=== PATIENT | male | born 1970 | race Caucasian/White ===

== ENCOUNTER 2018-10-04 19:39 | Inpatient (IN) | payer OTHER ==
[~2018-10-04] VITALS: Ht 182.9 cm; Wt 117.0 kg
[2018-10-04] MEDS ORDERED: LISINOPRIL10 MG PO (19:47)
[2018-10-04] MEDS ORDERED: METFORMIN HCL500 MG PO (19:47)
--- NOTE | 2018-10-04 20:00 | NUR ---
PT SEEN BY HEAD BUCKER AFTER PRESTING TO ER FOR CRUSH INJURY TO RIGHT FOOT. SMALLEST TOE ON RIGHT FOOT, 5TH DIGIT SEVERED FROM FOOT HANGING BY TISSUE. WOUND CLEANED WITH SALINE AND WRAPPED WITH CURLEX.
--- NOTE | 2018-10-04 20:09 | NUR ---
PT PRESENTS TO ED WITH CRUSHING INJURY TO RIGHT FOOT SUSTAINED BY FORKLIFT ACCIDENT.
[2018-10-04 20:25] LABS: ABSOLUTE BASOPHILS 0.1 thou/uL (0.0-0.2); ABSOLUTE EOSINOPHILS 0.1 thou/uL (0.0-0.7); ABSOLUTE LYMPHOCYTES 3.2 thou/uL (0.8-5.3); ABSOLUTE MONOCYTES 0.8 thou/uL (0.0-1.2); ABSOLUTE NEUTROPHILS 5.2 thou/uL (1.6-8.1); BASOPHILS 0.8 %; EOSINOPHILS 1.5 %; HEMATOCRIT 44.8 % (42.0-52.0); HEMOGLOBIN 15.3 gm/dL (14.0-18.0); LYMPHOCYTES 33.8 %; MCH 30.9 pg (26.0-34.0); MCHC 34.1 g/dL (28.0-37.0); MCV 90.5 fL (80.0-100.0); MONOCYTES 8.1 %; MPV 6.7 fl. (7.2-11.1); NUCLEATED RBCS 0 /100WBC; PLATELET COUNT* 311 thou/uL (150-400); POLYS 55.8 %; RBC 4.95 mil/uL (4.50-6.00); RDW-CV 13.2 % (10.5-14.5); WBC 9.4 thou/uL (4.0-11.0)
[2018-10-04 20:33] LABS: CALCIUM 9.1 mg/dL (8.5-10.1); CREATININE 0.9 mg/dL (0.6-1.3); POTASSIUM 3.5 mmol/L (3.5-5.1)
[2018-10-04 20:37] LABS: ALBUMIN 3.8 g/dL (3.4-5.0); TOTAL BILIRUBIN 0.3 mg/dL (<0.1-1.0); TOTAL PROTEIN 7.2 g/dL (6.4-8.2)
[2018-10-04 22:43] VITALS: BP 108/61
--- NOTE | 2018-10-04 22:43 | NUR ---
REPORT GIVEN TO JOSHUA DELGADILLO. PT BEING ADMITTED TO ORTHO UNIT.
[2018-10-04 23:00] VITALS: BP 145/89
[2018-10-05] VITALS (8 sets, daily range): BP systolic 119–143; BP diastolic 59–83
--- NOTE | 2018-10-05 07:33 | NUR ---
Admission to floor at 2300. He amputated his toe with a forklift. He has a kerlex dressing to the right foot. This am the ortho resident was in to see him and we removed the dressing and pictures were taken. He's had pain meds x 3 this shift. He's had nothing by mouth since midnight.He has slept alittle.
--- NOTE | 2018-10-05 14:26 | NUR ---
SW attempted to meet with pt this morning and pt was off of unit possibly in surgery. SW to remain available to assist with safe dc planning if needs arise.
--- NOTE | 2018-10-05 16:59 | EKG ---
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
--- NOTE | 2018-10-05 17:33 | NUR ---
PATIENT ALERT AND ORIENTED X 4. VITAL SIGNS STABLE ON ROOM AIR. UP WITH ASSISTANCE. WEIGHT BEARING THROUGH HEEL ON RIGHT FOOT, WITH SURGICAL SHOE. IV PATENT WITH FLUIDS INFUSING. DENIES NAUSEA AT THIS TIME. PAIN BEING MANAGED WITH IV AND PO MEDICATION. FALL PRECAUTIONS IN PLACE AND BED ALARM ON. HOURLY ROUNDS MAINTAINED THROUGHOUT THE SHIFT. CALL LIGHT WITHIN REACH. NURSING WILL CONTINUE TO MONITOR.
[2018-10-06] VITALS (7 sets, daily range): BP systolic 115–127; BP diastolic 63–83
[2018-10-06 03:58] LABS: ABSOLUTE LYMPHOCYTES 1.4 thou/uL (0.8-5.3); ABSOLUTE MONOCYTES 0.6 thou/uL (0.0-1.2); ABSOLUTE NEUTROPHILS 11.3 thou/uL (1.6-8.1); BASOPHILS 0.2 %; EOSINOPHILS 0.1 %; HEMATOCRIT 44.8 % (42.0-52.0); HEMOGLOBIN 14.8 gm/dL (14.0-18.0); LYMPHOCYTES 10.5 %; MCH 30.4 pg (26.0-34.0); MCV 92.1 fL (80.0-100.0); MONOCYTES 4.4 %; MPV 7.2 fl. (7.2-11.1); NUCLEATED RBCS 0 /100WBC; PLATELET COUNT* 295 thou/uL (150-400); POLYS 84.8 %; RBC 4.87 mil/uL (4.50-6.00); RDW-CV 12.8 % (10.5-14.5); WBC 13.3 thou/uL (4.0-11.0)
[2018-10-06 04:24] LABS: CALCIUM 8.5 mg/dL (8.5-10.1); CREATININE 0.6 mg/dL (0.6-1.3); POTASSIUM 4.2 mmol/L (3.5-5.1)
--- NOTE | 2018-10-06 04:52 | NUR ---
PT ALERT AND ORIENTED. VSS ON RA. ASSESSMENT DOCUMENTED. DRESSING TO RT FEET C/D/I. PAIN MEDS GIVENS THIS SHIFT. RELIEFS NOTED. PT REFUSES CAPNO MONITORING. EDUCATION PROVIDED. PT SATTING IN THE HIGH 90'S AT RA. SLEEPING MED GIVEN PER PT'S REQUEST. CALL LIGHT WITHIN REACH. HOURLY ROUNDINGS MADE. POSSIBLE DC TO HOME TODAY. WILL CONTINUE TO MONITOR.
[2018-10-06] MEDS ORDERED: NORCO 5-325 TA1 EAC1 PO (08:49)
[2018-10-06] MEDS ORDERED: OXYCODONE HCL 55 MG PO (08:49)
--- NOTE | 2018-10-06 08:53 | OP ---
[facility] [address] [place] [address] OPERATIVE REPORT Name: GUERREROPEDRO Wiseman Room: [address] IN .R.#: [id number] Admission: 10/04/18 Attend Phys: Phyllis Polanco Discharge: Date of : 72 Report #: [id number] THIS REPORT FOR: //name// CC: Lisa Choi DICTATED BY: Denzel Ramon DO DATE OF SERVICE: 10/05/2018 PREOPERATIVE DIAGNOSIS: Right fifth toe traumatic partial amputation. POSTOPERATIVE DIAGNOSIS: Right fifth toe traumatic partial amputation. OPERATION PERFORMED: Revision amputation of right fifth toe. SURGEON: Dr. Demetrius June. CHARGE MASTER SPECIALIST: Denzel Ramon DO and Tyree Armstrong DO. ESTIMATED BLOOD LOSS: 15 mL. ANTIBIOTICS: Ancef 2 grams. ANESTHESIA: General. DRAINS: None. SPECIMENS: None. COMPLICATIONS: None. CONDITION: Stable. DISPOSITION: PACU to Med/Surg floor." OPERATIVE INDICATIONS: The patient is a pleasant 47-year-old male who presented to the [facility] on 10/04/2018 after sustaining an injury earlier that day to his right foot, small toe. 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 He had immediate pain and bleeding and came to the Emergency Department and was noted to have partial amputation at the level of the middle phalanx of the small toe. He was updated on his tetanus and given a dose of IV antibiotics. We discussed with him the findings as there is very little soft tissue attachment left to the distal aspect of the toe and it was very unlikely that this would heal. Therefore, we did discuss a revision [place] [address] OPERATIVE REPORT Name: PEDRO MASTERS V Room: [address] IN [facility]#: [id number] Admission: 10/04/18 Attend Phys: Phyllis Polanco Discharge: Date of : 72 Report #: [id number] indications, and treatment alternatives were reviewed. He was in agreement with our treatment plan and his informed consent was signed. DESCRIPTION OF PROCEDURE: The patient was identified in the preoperative holding area. Questions were answered. His right foot was marked as the operative side as confirmed by the patient. He was transferred to the operating suite and placed on the operating table in supine position where general anesthesia was then induced. A well-padded pneumatic tourniquet was placed on the right proximal thigh; however, this was not inflated during the procedure. The right lower extremity was then sterilely prepped and draped with Betadine. A time-out was then performed to confirm that our safety checklist had been completed and all the OR personnel was in agreement. Upon intraoperative examination of the right small toe, it was completely stripped of almost all soft tissue attachments except for the skin, which was attached posteriorly. The distal aspect of the toe was beginning to turn dusky. Therefore, we did proceed with the completion of the amputation. A 15 blade scalpel was used to complete the amputation of the skin and the remaining soft tissue attachments. The Addy elevator was used to identify the metatarsophalangeal joints and the proximal phalanx was sharply excised. The soft tissues were then thoroughly irrigated. The digital nerve was transected and cauterized. This was also buried in soft tissue. The skin edges were then reapproximated free of tension utilizing 3-0 nylon sutures in a simple interrupted fashion. Skin did close nicely. There was no significant gapping and there was not much tension on the incision at all. A sterile bandage was then applied with Xeroform, 4 x 4s, ABD, Kerlix and an Cory bandage. The patient was awakened from general anesthetic. Sponge and needle counts were correct x 2. He was transferred to the PACU in stable condition. Dr. June was present for the entirety of the procedure including all the vital portions. <ELECTRONICALLY SIGNED> By: Richard Silvestre DO 10/06/18 0853 [id number] June DO /nt
[2018-10-06] MEDS ORDERED: NICOTINE TRANSD21 M1 TRANSDERM (09:43)
[2018-10-06] MEDS ORDERED: DOK PLUS TABLE1 EACH PO (09:43)
--- NOTE | 2018-10-06 12:03 | NUR ---
Pt to dc home today. Pt in need of rolling walker. SW met with pt to discuss rolling walker need and pt said he actually has insurance and provided CM with info, ALBERTO called Jessica with [employer] who found information in [employer] under "Negro" Nilsa Kimble and approved walker to be issued. Pt has this insurance through January and shared that it is through pt who pt and pt are going through a divorce. Pt Haley Kimble [employer] GRP: [phone], [employer] Manager [phone]. ID [id number]. 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 No other dc needs expressed.
--- NOTE | 2018-10-06 12:26 | NUR ---
PT GIVEN DISCHARGE INFORMATION, CARE NOTES, AND PRESCRIPTIONS. IV REMOVED. WALKER GIVEN. ORTHO SHOE IN PLACE. WEIGHT BEARING RESTRICTIONS IN PLACE. FALL RISK PRECAUTIONS IN PLACE. HOURLY ROUNDING COMPLETED. PT LEFT VIA WHEELCHAIR TO HOME.
--- NOTE | 2018-10-06 15:39 | NUR ---
PT ORDERS RECEIVED. PT DISCHARGED FROM HOSPITAL PRIOR TO COMPLETION OF PT EVAL AND INTERVENTIONS.
[2018-10-07 02:10] LABS: HBsAG-EMPLOYEE EXPOSURE Negative (Negative)
[2018-10-07 06:10] LABS: GLYCOHEMOGLOBIN (HGB A1C) 7.9 % (4.8-5.6)
== END 2018-10-06 12:27 | disposition home or self-care (01) | DRG 909 ==
LOC: M.ERS 19:39 → M.TBA-ER 20:43 → M.ORTHSURG 20:43
PROVIDERS: Family Medicine; Nurse Practitioner Psychiatric/Mental Health; ADMIT Internal Medicine
PROC: 0Y6X0Z2 Detachment at Right 5th Toe, Mid, Open Approach (ICD-10-PCS; principal; 2018-10-05)
DX: S98.131A Complete traumatic amputation of one right lesser toe, initial encounter (principal); I10 Essential (primary) hypertension; E11.9 Type 2 diabetes mellitus without complications; Z88.0 Allergy status to penicillin; F17.210 Nicotine dependence, cigarettes, uncomplicated; E66.01 Morbid (severe) obesity due to excess calories; Z68.35 Body mass index [BMI] 35.0-35.9, adult; Z23 Encounter for immunization; X58.XXXA Exposure to other specified factors, initial encounter; Y93.89 Activity, other specified; Y92.89 Other specified places as the place of occurrence of the external cause; Y99.8 Other external cause status

== ENCOUNTER 2020-09-26 23:11 | Emergency (ER) | payer OTHER ==
[~2020-09-26] VITALS: Ht 182.9 cm; Wt 102.1 kg
[~2020-09-26 23:11] MED LIST: DOK PLUS TABLE1 EACH PO; LISINOPRIL10 MG PO; METFORMIN HCL500 MG PO; NICOTINE TRANSD21 M1 TRANSDERM; NORCO 5-325 TA1 EAC1 PO; OXYCODONE HCL 55 MG PO
[2020-09-26 23:25] VITALS: BP 132/84
[2020-09-26] MEDS ORDERED: PERCOCET 7.5-31 EAC1 PO (23:53)
== END 2020-09-27 00:14 | disposition home or self-care (01) ==
LOC: M.ERS 23:11
DX: M25.461 Effusion, right knee (principal); M25.561 Pain in right knee; I10 Essential (primary) hypertension; E11.9 Type 2 diabetes mellitus without complications; Z88.0 Allergy status to penicillin

== ENCOUNTER 2021-03-04 16:53 | Emergency (ER) | payer OTHER ==
[~2021-03-04] VITALS: Ht 182.9 cm; Wt 129.3 kg
[~2021-03-04 16:53] MED LIST changes: +PERCOCET 7.5-31 EAC1 PO
[2021-03-04] MEDS ORDERED: HYDROCODON-ACE1 EAC7 PO (18:49)
[2021-03-04] MEDS ORDERED: CEPHALEXIN500 MG PO (18:59)
[2021-03-04 19:22] VITALS: BP 141/70
== END 2021-03-04 19:22 | disposition home or self-care (01) ==
LOC: M.ERS 16:53
DX: S61.411A Laceration without foreign body of right hand, initial encounter (principal); S80.01XA Contusion of right knee, initial encounter; I10 Essential (primary) hypertension; E11.9 Type 2 diabetes mellitus without complications; F90.9 Attention-deficit hyperactivity disorder, unspecified type; F17.210 Nicotine dependence, cigarettes, uncomplicated; Z79.899 Other long term (current) drug therapy; Z88.0 Allergy status to penicillin; W19.XXXA Unspecified fall, initial encounter; Y93.89 Activity, other specified; Y92.89 Other specified places as the place of occurrence of the external cause; Y99.8 Other external cause status